=== PATIENT | male | born 1970 | race Two or more races ===

== ENCOUNTER 2019-10-09 05:54 | Day surgery (SDC) | payer MEDICAID ==
[2019-10-09] MEDS ORDERED: Midazolam 1 MG/ML 2 ML SDV IV ONE ×7 (05:55→07:07)
[2019-10-09] MEDS ORDERED: fentaNYL 100 MCG/2 ML SDV IV ONE ×4 (05:55→07:18)
[2019-10-09] MEDS ORDERED: fentaNYL 100 MCG/2 ML SDV ONE (06:14)
[2019-10-09] MEDS ORDERED: Midazolam 1 MG/ML 2 ML SDV ONE (06:14)
[2019-10-09] MEDS ORDERED: Sodium Chloride 0.9% 10 ML Syringe FLUSH PRN (06:50)
[2019-10-09] MEDS ORDERED: Dextrose 5%-0.45% NaCl 1,000 ML IV SCH (07:00)
[2019-10-09 11:08] VITALS: PULSE 53
[2019-10-09 11:09] VITALS: BP 96/61
--- NOTE | 2019-10-09 13:57 | OR ---
DATE: 10/09/2019 PROCEDURE PERFORMED: Total colonoscopy. INSTRUMENT USED: PCF-H190DL Olympus video colonoscope. PREMEDICATIONS: Fentanyl 125 mcg intravenous, Versed 4 mg intravenous. The procedure was done under pulse oximetry, BP recording, and tv news director. INDICATIONS: Screening colonoscopic examination is done for detection of any polypoid lesions and removal, endoscopic hemostasis therapy if needed. DESCRIPTION OF PROCEDURE: Initial rectal exam was unremarkable. Rigid anoscopy showed small internal hemorrhoids without bleeding from them. The colonoscope was passed with ease. Numerous scattered diverticula were noted in the distal left colon along with significant deformity. The scope was passed with ease up to the ileocecal area. Photographs were taken of the normal-appearing cecum identified by double-bulged ileocecal folds. No bleeding was noted from any of the visualized areas at the commencement of the examination. The bowel preparation was found to be adequate, [place] score 3 in the right colon, 3 in transverse colon, and 2 in left colon, total score of 8. No stricture. No vascular ectasia. No large isolated ulcerations seen. No evidence of diffuse inflammatory bowel disease in the form of friability, contact bleeding, or ulcerations. No polyp or tumor mass identified. Probing the proximal sides of folds and flexures using adequate distention and clearing up the stool material, withdrawal of the scope was made, cecum to rectum time over 6 minutes. No bleeding was noted from any of the visualized areas at the completion of examination. IMPRESSION: 1. Internal hemorrhoids. 2. Diverticulosis. The patient tolerated the procedure well. [facility] /[id number]
== END 2019-10-09 09:30 | disposition home or self-care (01) ==
LOC: DL.ENDO 05:54
PROVIDERS: ATTEND Internal Medicine Gastroenterology
DX: Z12.11 Encounter for screening for malignant neoplasm of colon (principal); K64.8 Other hemorrhoids; K57.30 Diverticulosis of large intestine without perforation or abscess without bleeding; M19.90 Unspecified osteoarthritis, unspecified site; Z87.891 Personal history of nicotine dependence; Z98.890 Other specified postprocedural states; Z87.828 Personal history of other (healed) physical injury and trauma
CPT/HCPCS: 45378; J2250; J3010; J7042; G0121

== ENCOUNTER 2023-01-29 12:58 | Emergency (ER) | payer MEDICAID ==
[2023-01-29] MEDS ORDERED: Ketorolac 10 MG Tab PO ONE (12:59)
[2023-01-29 16:01] LABS: BASOPHILS PERCENT AUTO 0.1 % (0.0-1.0); EOSINOPHILS PERCENT AUTO 0.1 % (1.0-3.0); HEMOGLOBIN 16.6 g/dL (14.0-18.0); LYMPHOCYTES PERCENT AUTO 7.3 % (20.5-50.1); MEAN CORPUSCULAR HEMOGLOBIN 30.5 pg (27.0-34.0); MEAN CORPUSCULAR HGB CONC 35.3 g/dL (33.0-35.0); MEAN CORPUSCULAR VOLUME 86.4 fL (80-100); MONOCYTES PERCENT AUTO 8.2 % (2-8); NEUTROPHILS PERCENT AUTO 84.3 % (42.2-75.2); PLATELET COUNT,PLT 280 10^3/uL (150-450); RED BLOOD CELL COUNT 5.44 10^6/uL (4.6-6.2); WHITE BLOOD CELL COUNT,WBC 18.1 10^3/uL (5.0-10.0)
[2023-01-29 16:02] LABS: APPEARANCE,URINE CLEAR (CLEAR); BILIRUBIN,URINE SMALL (NEGATIVE); COLOR,URINE YELLOW (YELLOW); GLUCOSE,URINE NEGATIVE (NEGATIVE); KETONES,URINE 80 (NEGATIVE); LEUKOCYTE ESTERASE,URINE NEGATIVE (NEGATIVE); NITRITE,URINE NEGATIVE (NEGATIVE); OCCULT BLOOD,URINE TRACE-INTACT (NEGATIVE); PH,URINE 5.5 (5.0-9.0); PROTEIN,URINE 30 (NEGATIVE); UROBILINOGEN,URINE 0.2 mg/dL (0.2-1.0)
[2023-01-29] MEDS ORDERED: Sodium Chloride 0.9% 1,000 ML IV ONE (16:19)
[2023-01-29] MEDS ORDERED: Iopamidol 612 MG/ML 100 ML Bottle IVPUSH ONE (16:19)
[2023-01-29] MEDS ORDERED: Ondansetron 4 MG/2 ML SDV IVPUSH ONE (16:19)
[2023-01-29] MEDS ORDERED: Ketorolac 30 MG/ML SDV IVPUSH ONE (16:19)
[2023-01-29 16:20] LABS: A/G RATIO 1.1; BILIRUBIN TOTAL 1.4 mg/dL (0.2-1.0); BUN/CREATININE RATIO 11.6 (No establ ref range); CALCIUM 8.9 mg/dL (8.5-10.1); CREATININE 0.95 mg/dL (0.70-1.30); EST CRCL DRUG DOSING (CG) 92.85 mL/min; PROTEIN TOTAL,TP 7.8 g/dL (6.4-8.2)
[2023-01-29 16:25] LABS: BACTERIA,URINE FEW /HPF (0-FEW/HPF); EPITHELIAL CELLS,URINE RARE /HPF (NOT SEEN); MUCUS,URINE MANY /LPF (NOT SEEN); RBC,URINE 0-5 /HPF (0-5); WBC,URINE 0-5 /HPF (0-5/HPF)
[2023-01-29 16:35] LABS: LACTIC ACID 0.8 mmol/L (0.4-2.0)
[2023-01-29] MEDS ORDERED: Take Home: metroNIDAZOLE 250 MG Tab, 8 Tab Pack PO ONE (18:06)
[2023-01-29] MEDS ORDERED: Take Home: Ciprofloxacin HCl 500 MG, 6 Tab Pack PO ONE (18:06)
[2023-01-29] MEDS ORDERED: Ketorolac 10 MG Tab ONE (18:21)
[2023-01-29 18:52] VITALS: BP 132/69; PULSE 74
== END 2023-01-29 18:44 | disposition home or self-care (01) ==
LOC: DL.ED 12:58
DX: K57.32 Diverticulitis of large intestine without perforation or abscess without bleeding (principal); D73.4 Cyst of spleen; N28.1 Cyst of kidney, acquired; Z87.891 Personal history of nicotine dependence
CPT/HCPCS: 36415; 74177; 80053; 81001; 83605; 85025; 86140; 87040; 96361; 96374; 96375; 99284; 99284-25; A9270-GY; J1885; J2405; J7030; Q9967